=== PATIENT | female | born 1985 | race Caucasian/White ===

== ENCOUNTER → 2019-10-30 | Outpatient (CLI) | payer OTHER ==
[2019-10-31 08:12] LABS: RHEUMATOID FACTOR <10.0 IU/mL (0.0-13.9)
[2019-11-01 19:10] LABS: ANA INTERP Positive (.)
== END | disposition home or self-care (01) ==
LOC: LAB 15:09
PROVIDERS: ATTEND Family Medicine
DX: M25.50 Pain in unspecified joint (principal)
CPT/HCPCS: 36415; 85651; 86038; 86140; 86431